=== PATIENT | male | born 1985 | race Caucasian/White ===

== ENCOUNTER 2018-03-25 17:52 | Emergency (ER) | payer OTHER ==
[2018-03-25 18:10] VITALS: BP 125/70; PULSE 73; RESP 20; TEMP 98.2; O2SAT 99
== END 2018-03-25 19:00 | disposition home or self-care (01) | DRG 563 ==
LOC: ED 17:52
DX: S62.337A Displaced fracture of neck of fifth metacarpal bone, left hand, initial encounter for closed fracture (principal); X58.XXXA Exposure to other specified factors, initial encounter; Y93.89 Activity, other specified; Y92.39 Other specified sports and athletic area as the place of occurrence of the external cause; Y99.9 Unspecified external cause status
CPT/HCPCS: 73130; 99283

== ENCOUNTER 2018-04-19 09:47 | Outpatient (CLI) | payer OTHER ==
[2018-03-25 18:10] VITALS: O2SAT 99
== END 2018-04-19 09:48 | disposition home or self-care (01) | DRG 561 ==
LOC: CONVCARE 09:47
PROVIDERS: ATTEND Orthopaedic Surgery
DX: S62.307D Unspecified fracture of fifth metacarpal bone, left hand, subsequent encounter for fracture with routine healing (principal)
CPT/HCPCS: 73130